=== PATIENT | female | born 1975 | race Caucasian/White ===

== ENCOUNTER → 2016-11-26 | Day surgery (SDC) | payer OTHER ==
[~2016-11-26] VITALS: Ht 157.5 cm; Wt 43.2 kg
[~2016-11-26] MED LIST: DILAUDID2 MG PO; FLONASE16 G1 BOTH NARES; HUMALOG100 UNIT/2 SC; INDERAL LA80 MG PO; INDERAL80 MG PO; LEVAQUIN750 MG PO; LEVEMIR FL100 UNIT/1 SC; LEVEMIR100 UNIT/2 SC; LOVENOX60 MG/0.6 SC; METHIMAZOLE10 MG PO; METHIMAZOLE5 MG PO; NORCO 5/3251 TABLET PO; NOVOLOG PE100 UNITS/ SC; ONE TOUCH ULTR1 EACH MC; OXYCODONE HCL10 MG PO; PREDNISONE10 MG PO; PROZAC20 MG PO; RAYOS5 MG PO; REFRESH EYE DR1 EACH BOTH EYES; TAPAZOLE5 MG PO; VITAMIN D2000 UNIT PO; VITAMIN D31000 UNIT PO; ZOFRAN4 MG PO; [UNRECOGNIZED DRUG - OTHER] BOTH EYES
[2016-11-26 09:45] LABS: EOSINOPHIL (%) 0 % (0-5); HEMATOCRIT 41.5 % (36.0-46.0); IMMATURE GRANULOCYTE (%) 0.4 % (0.0-0.7); INSTRUMENT ABS NEUTROPHIL CT 3.7 K/uL; LYMPHOCYTE COUNT 0.5 K/uL (1.0-2.8); MCH 30.7 PG (29.0-34.0); MCHC 33.3 G/DL (30.0-36.0); MCV 92.2 FL (83-99); MEAN PLAT.VOLUME 8.6 uM^3 (9.5-12.4); MONOCYTE (%) 7.6 % (3-12); MONOCYTE COUNT 0.4 K/uL (0-0.8); NEUTROPHIL (%) 80.8 % (45-76); NEUTROPHIL COUNT 3.7 K/uL (1.8-6.4); PLATELET COUNT 222 K/uL (156-360); RBC DIS.WIDTH-CV 12.5 % (11.8-14.6); RBC DIS.WIDTH-SD 41.9 % (39-53); WHITE BLOOD COUNT 4.6 K/uL (4.1-10.2)
[2016-11-26 09:49] LABS: POINT-OF-CARE METER ID UU14100415
[2016-11-26 09:56] LABS: CHLORIDE 98 mEq/L (99-109); POTASSIUM 3.5 mEq/L (3.7-5.4); SODIUM 139 mEq/L (136-147)
[2016-11-26 09:58] LABS: GLUCOSE 83 mg/dL (70-99)
[2016-11-26 10:00] LABS: ANION GAP 19 MEQ/L (2-14); TOTAL BILIRUBIN 0.8 mg/dL (0.0-1.0)
[2016-11-26 10:02] LABS: ALKALINE PHOSPHATASE 70 IU/L (3-129); GFR ESTIMATE (CALCULATED) > 59 mL/min/
[2016-11-26 10:03] LABS: UREA NITROGEN (BUN) 28 mg/dL (9-23)
[2016-11-26 10:11] LABS: QUANTITATIVE HCG < 4.0 MIU/ML
[2016-11-26 12:00] VITALS: BP 134/93
[2016-11-26 15:13] LABS: POINT-OF-CARE METER ID UU13113675
[2016-11-26 15:45] LABS: POINT-OF-CARE METER ID UU13113675
== END | disposition home or self-care (01) ==
LOC: EME 09:00 → SDC 13:54
PROVIDERS: Emergency Medicine; Internal Medicine Gastroenterology
PROC: 0DC28ZZ Extirpation of Matter from Middle Esophagus, Via Natural or Artificial Opening Endoscopic (ICD-10-PCS; principal; 2016-11-26)
DX: T18.128A Food in esophagus causing other injury, initial encounter (principal); K22.2 Esophageal obstruction; K22.10 Ulcer of esophagus without bleeding; R93.3 Abnormal findings on diagnostic imaging of other parts of digestive tract; Z85.41 Personal history of malignant neoplasm of cervix uteri; E10.9 Type 1 diabetes mellitus without complications; E05.90 Thyrotoxicosis, unspecified without thyrotoxic crisis or storm; Z87.891 Personal history of nicotine dependence
CPT/HCPCS: 70360; 71020; 71260; 80053; 82948; 83735; 84702; 85025; 99281; 99285; J0330; J1100; J2250; J2405; J7030

== ENCOUNTER 2017-03-23 21:03 | Emergency (ER) | payer OTHER ==
[~2017-03-23] VITALS: Ht 157.5 cm; Wt 34.1 kg
[~2017-03-23 21:03] MED LIST changes: +XARELTO10 MG PO
[2017-03-23 22:15] LABS: HEMATOCRIT 38.5 % (36.0-46.0); MCH 28.7 PG (29.0-34.0); MCHC 32.5 G/DL (30.0-36.0); MCV 88.5 FL (83-99); MEAN PLAT.VOLUME 9.7 uM^3 (9.5-12.4); RBC DIS.WIDTH-SD 56.3 % (39-53); RED BLOOD COUNT 4.35 M/uL (3.80-5.20); WHITE BLOOD COUNT 25.4 K/uL (4.1-10.2)
[2017-03-23 22:18] LABS: PLATELET COUNT 201 K/uL (156-360)
[2017-03-23 22:52] LABS: CHLORIDE 98 mEq/L (99-109); POTASSIUM 4.5 mEq/L (3.7-5.4); SODIUM 136 mEq/L (136-147)
[2017-03-23 22:53] LABS: GLUCOSE 107 mg/dL (70-99)
[2017-03-23 22:55] LABS: ANION GAP 20 MEQ/L (2-14)
[2017-03-23 22:57] LABS: GFR ESTIMATE (CALCULATED) > 59 mL/min/
[2017-03-23 22:58] LABS: UREA NITROGEN (BUN) 22 mg/dL (9-23)
[2017-03-24 00:05] VITALS: BP 115/78
== END 2017-03-24 00:07 | disposition home or self-care (01) ==
LOC: EME 21:03
PROVIDERS: Emergency Medicine
DX: E86.0 Dehydration (principal); R00.0 Tachycardia, unspecified; R11.2 Nausea with vomiting, unspecified; C76.0 Malignant neoplasm of head, face and neck; C15.9 Malignant neoplasm of esophagus, unspecified; Z85.42 Personal history of malignant neoplasm of other parts of uterus; Z92.3 Personal history of irradiation; E11.9 Type 2 diabetes mellitus without complications; Z79.4 Long term (current) use of insulin; Z79.01 Long term (current) use of anticoagulants; Z87.891 Personal history of nicotine dependence
CPT/HCPCS: 80048; 85027; 99281; 99284; J1100; J2270; J2405; J7030

== ENCOUNTER → 2017-03-28 | Outpatient (CLI) | payer OTHER ==
[2017-03-28 14:47] LABS: TYPE OF FLUID PLEURAL
[2017-03-28 15:05] LABS: BODY FLUID PROTEIN 3.5 G/DL
[2017-03-28 15:43] LABS: BODY FLUID EOSINOPHILS 0 % (0-25); BODY FLUID RBC'S 1000 /MM^3 (0-100); BODY FLUID WBC'S 183 /MM^3 (0-500); MONONUCLEAR WBC'S 64 %; POLYNUCLEAR WBC'S 36 % (0-25)
== END | disposition home or self-care (01) ==
LOC: RAD 13:32 → EDSTATUS 14:00 → RAD 14:00
PROVIDERS: Internal Medicine
PROC: 0W993ZZ Drainage of Right Pleural Cavity, Percutaneous Approach (ICD-10-PCS; principal; 2017-03-28)
DX: J90 Pleural effusion, not elsewhere classified (principal); J98.4 Other disorders of lung; R91.8 Other nonspecific abnormal finding of lung field
CPT/HCPCS: 71010; 76942; 82945; 84157; 88108; 88305; 89051

== ENCOUNTER 2017-04-03 23:07 | Inpatient (IN) | payer OTHER ==
[~2017-04-03] VITALS: Ht 157.5 cm; Wt 34.1 kg
[2017-04-03 23:57] LABS: BASOPHIL COUNT 0.1 K/uL (0-0.1); EOSINOPHIL (%) 0.1 % (0-5); HEMATOCRIT 43.3 % (36.0-46.0); IMMATURE GRANULOCYTE (%) 0.7 % (0.0-0.7); IMMATURE GRANULOCYTE COUNT 0.1 K/uL; INSTRUMENT ABS NEUTROPHIL CT 16.3 K/uL; LYMPHOCYTE COUNT 0.6 K/uL (1.0-2.8); MCH 28.6 PG (29.0-34.0); MCHC 32.3 G/DL (30.0-36.0); MCV 88.5 FL (83-99); MEAN PLAT.VOLUME 8.5 uM^3 (9.5-12.4); MONOCYTE (%) 4.6 % (3-12); MONOCYTE COUNT 0.8 K/uL (0-0.8); NEUTROPHIL (%) 90.8 % (45-76); NEUTROPHIL COUNT 16.3 K/uL (1.8-6.4); PLATELET COUNT 323 K/uL (156-360); RBC DIS.WIDTH-CV 18.1 % (11.8-14.6); RBC DIS.WIDTH-SD 58.5 % (39-53); RED BLOOD COUNT 4.89 M/uL (3.80-5.20)
[2017-04-04 00:09] LABS: CHLORIDE 84 mEq/L (99-109); POTASSIUM 3.9 mEq/L (3.7-5.4); SODIUM 129 mEq/L (136-147)
[2017-04-04 00:11] LABS: GLUCOSE 114 mg/dL (70-99)
[2017-04-04 00:12] LABS: ANION GAP 14 MEQ/L (2-14)
[2017-04-04 00:13] LABS: TOTAL BILIRUBIN 0.5 mg/dL (0.0-1.0)
[2017-04-04 00:14] LABS: ALKALINE PHOSPHATASE 226 IU/L (3-129)
[2017-04-04 00:15] LABS: GFR ESTIMATE (CALCULATED) > 59 mL/min/
[2017-04-04 00:16] LABS: UREA NITROGEN (BUN) 17 mg/dL (9-23)
[2017-04-04 00:18] LABS: TROP-I INTERPRETATION NEGATIVE; TROPONIN-I < 0.01 ng/mL (0.0-0.30)
[2017-04-04 00:45] LABS: LIPASE < 1.0 U/L (1.0-51.0)
[2017-04-04 03:19] LABS: ADD MIUA? YES; BILIRUBIN NEGATIVE; BLOOD MODERATE; COLOR YELLOW ((YELLOW)); GLUCOSE (STRIP) NEGATIVE; KETONES 5; LEUKOCYTES NEGATIVE; NITRITE NEGATIVE; PROTEIN (STRIP) NEGATIVE; UROBILINOGEN 0.2 MG/DL (0.2-1.0)
[2017-04-04 03:27] LABS: BACTERIA RARE /HPF; EPITHELIAL CELLS RARE /HPF; MUCUS TRACE /LPF; UCUL ADDED? YES
[2017-04-04 03:39] LABS: SPECIFIC GRAVITY 1.067 (1.000-1.030)
[2017-04-04 08:20] VITALS: BP 151/103
[2017-04-04 09:07] VITALS: BP 141/104
[2017-04-04] MEDS ORDERED: BENZONATATE100 MG PO (09:25)
[2017-04-04] MEDS ORDERED: XARELTO20 MG PO (09:26)
[2017-04-04 11:48] VITALS: BP 131/97
[2017-04-04 14:07] LABS: HEMATOCRIT 39.8 % (36.0-46.0); MCH 29.1 PG (29.0-34.0); MCHC 31.2 G/DL (30.0-36.0); MEAN PLAT.VOLUME 8.6 uM^3 (9.5-12.4); PLATELET COUNT 356 K/uL (156-360); RBC DIS.WIDTH-CV 18.3 % (11.8-14.6); RBC DIS.WIDTH-SD 62.5 % (39-53); RED BLOOD COUNT 4.26 M/uL (3.80-5.20)
[2017-04-04 14:08] LABS: MCV 93.4 FL (83-99); WHITE BLOOD COUNT 33.2 K/uL (4.1-10.2)
[2017-04-04 14:11] VITALS: BP 108/88
[2017-04-04 14:13] LABS: INTER. NORMALIZED RATIO 1.3; PROTHROMBIN TIME 14.5 SEC (10.2-12.9)
[2017-04-04 14:16] LABS: PTT 36.6 SEC (25-37)
== END 2017-04-04 15:01 | DRG 871 ==
LOC: EME 23:07 → EDOF 04-04 05:37 → ENRESERV 04-04 05:39 → CANRESERV 04-04 14:18 → ENRESERV 04-04 14:18 → EDOF 04-04 14:48 → ENRESERV 04-04 14:48 → CANRESERV 04-04 14:48 → EDOF 04-04 14:48
PROVIDERS: Emergency Medicine; Internal Medicine; Radiology Diagnostic Radiology
DX: A41.9 Sepsis, unspecified organism (principal); G93.40 Encephalopathy, unspecified; J96.91 Respiratory failure, unspecified with hypoxia; I46.9 Cardiac arrest, cause unspecified; C79.82 Secondary malignant neoplasm of genital organs; N30.91 Cystitis, unspecified with hematuria; C53.9 Malignant neoplasm of cervix uteri, unspecified; J18.9 Pneumonia, unspecified organism; E87.1 Hypo-osmolality and hyponatremia; J90 Pleural effusion, not elsewhere classified; J94.8 Other specified pleural conditions; Z66 Do not resuscitate; Z86.718 Personal history of other venous thrombosis and embolism; E10.9 Type 1 diabetes mellitus without complications; J98.11 Atelectasis; Z79.899 Other long term (current) drug therapy; Z79.4 Long term (current) use of insulin; Z72.0 Tobacco use; Z85.01 Personal history of malignant neoplasm of esophagus; Z85.41 Personal history of malignant neoplasm of cervix uteri; Z85.43 Personal history of malignant neoplasm of ovary
CPT/HCPCS: 71275; 80053; 81003; 83605; 83690; 83880; 84484; 85025; 85027; 85610; 85730; 87040; 87086; 93005; 93971; 94640; 94640 76; 94760; 94799; 99202; 99281; 99285; J0696; J1170; J1644; J1956; J2270; J2310; J2543; J3010; J3370; J7030; J7040; J7050; S0028